=== PATIENT | female | born 1975 | race Two or more races ===

== ENCOUNTER 2021-08-05 17:00 | Emergency (ER) | payer OTHER ==
[~2021-08-05] VITALS: Ht 160 cm; Wt 62.8 kg
[2021-08-05 17:00] VITALS: BP 131/71
[~2021-08-05 17:00] MED LIST: DOCU-109 PO; OXYC1TAB15 PO
[2021-08-05] MEDS ORDERED: ACETAMINOPHEN 325 MG TABLET. PO ONE (17:30)
[2021-08-05] MEDS ORDERED: KETOROLAC 30 MG/ML VIAL. IM ONE (17:30)
[2021-08-05] MEDS ORDERED: METHOCARBAMOL 750 MG TABLET PO PRN (17:30)
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
[2021-08-05] MEDS ORDERED: IBUP-1007 PO (18:07)
[2021-08-05] MEDS ORDERED: LIDO700A21 TP (18:09)
[2021-08-05] MEDS ORDERED: METH-562 PO (18:09)
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
--- NOTE | 2021-08-08 01:43 | EKG ---
[facility] [address] [place] [id number] Test Date: 2021-08-05 Test Time: 17:09:26 Pat Name: RENEA MANNING Department: Room: Gender: F [employer] Chief: : 1975 Requested By: VIKTORIYA MARCUS Order Number: [id number] Reading MD: Jabier Kothari Measurements Intervals [place] Rate: 76 P: 62 PA: 148 QRS: 52 QRSD: 90 T: 48 QT: 388 QTc: 441 Interpretive Statements SINUS RHYTHM Electronically Signed On 08-09-2021 11:29:52 CDT by Jabier Kothari
== END 2021-08-05 18:15 | disposition home or self-care (01) ==
LOC: ER 17:00
DX: M79.10 Myalgia, unspecified site (principal); S13.4XXA Sprain of ligaments of cervical spine, initial encounter; R07.89 Other chest pain; R51.9 Headache, unspecified; V49.49XA Driver injured in collision with other motor vehicles in traffic accident, initial encounter; Y92.488 Other paved roadways as the place of occurrence of the external cause; Y93.89 Activity, other specified; Y99.8 Other external cause status
CPT/HCPCS: 71045; 73590; 96372; 99284; J1885; 93005